=== PATIENT | female | born 1980 | race Hispanic/Latino ===

== ENCOUNTER 2017-10-25 12:22 | Inpatient (IN) | payer MEDICAID ==
--- NOTE | 2017-10-25 12:53 | History and Physical Report ---
History of Present Illness Chief complaint: I dont feel good History of present illness: 37 YO Female with HCV, Opiate Dependence admitted to Medical Stabilization Unit for stabilization treatment for Opiate withdrawl. Pt states that she has not used opiates for the past 1-2 days. Pt states that she has experienced abdominal cramping, nausea, multiple episodes of vomiting, and diarrhea, generalized muscle aches, pain all over her body, shaking, inability to concentrate, and feeling anxious. Pt seen and evaluated upon arrival and found to have Opiate Withdrawl and treated with IVF resuscitation and supportive care. Pt states that a needle broke and has remained in her right arm for the past several days. Past History Past Medical History: hepatitis Past Surgical History: cholecystectomy, Social history: single, IV drug use Family history: no significant family history (reviewed) Medications and Allergies Allergies Allergy/AdvReac Type Severity Reaction Status Date / Time No Known Allergies Allergy Unverified 10/25/17 12:30 Home Medications Medication Instructions Recorded Confirmed Last Taken Type No Known Home Medications [No 10/25/17 10/25/17 Unknown History Reported Home Medications] Active Meds: Active Medications Chlordiazepoxide HCl (Librium) 50 mg PO Q6HR ÁNGELA Stop: 10/26/17 12:01 Sodium Chloride (Nacl 0.9% 1000 Ml) 1,000 mls @ 75 mls/hr IV DIRECT ÁNGELA Review of Systems Constitutional: sweats, weakness, poor appetite, no weight loss, no weight gain , no fever, no chills Ears, nose, mouth and throat: no ear pain, no ear discharge, no tinnitis, no decreased hearing, no nose pain, no nasal congestion, no nasal discharge Breasts: no change in shape, no swelling, no mass Cardiovascular: no chest pain, no orthopnea, no palpitations, no rapid/ irregular heart beat, no edema, no syncope Respiratory: no cough, no cough with sputum, no excessive sputum, no hemoptysis , no shortness of breath Gastrointestinal: nausea, vomiting, diarrhea, no BRBPR, no melena, no hematochezia Genitourinary Female: no pelvic pain, no flank pain, no menorrhagia, no dysuria , no urinary frequency, no urgency Rectal: no pain, no bleeding Musculoskeletal: no neck stiffness, no neck pain, no shooting arm pain, no arm numbness/tingling, no low back pain, no shooting leg pain, no leg numbness/ tingling Integumentary: no rash, no pruritis, no redness, no sores, no wounds Neurological: tremors, no head injury, no transient paralysis, no paralysis, no weakness, no parathesias, no numbness, no tingling, no seizures Psychiatric: anxiety, sleep disturbances, depression, no memory loss, no change in sleep habits Endocrine: no cold intolerance, no heat intolerance, no polyphagia Hematologic/Lymphatic: no easy bruising, no easy bleeding, no lymphadenopathy, no lymphedema Allergic/Immunologic: no urticaria, no allergic rhinitis, no wheezing, no persistent infections, no anaphylaxis, no angioedema Exam - Constitutional General appearance: Present: severe distress - EENT Eyes: Present: mydriasis ENT: hearing intact, clear oral mucosa - Neck Neck: Present: supple, normal ROM - Respiratory Respiratory effort: normal Respiratory: bilateral: CTA - Cardiovascular Heart Sounds: Present: S1 & S2. Absent: rub, click - Extremities Extremities: pulses symmetrical, No edema Peripheral Pulses: within normal limits - Abdominal General gastrointestinal: Present: soft, non-tender, non-distended, normal bowel sounds Female genitourinary: Present: normal - Rectal Rectal Exam: normal exam-external/orifice - Integumentary Integumentary: Present: clear, dry, decreased turgor - Musculoskeletal Musculoskeletal: gait normal, strength equal bilaterally - Psychiatric Psychiatric: agitated - Neurologic Neurologic: CNII-XII intact, moves all extremities Results - Labs CBC & Chem 7: 10/25/17 14:48 10/25/17 14:48 Assessment and Plan - Patient Problems (1) Acute opioid withdrawal Current Visit: Yes Status: Acute Plan to address problem: IVF resuscitation therapy, neuro checks, Librium taper, antiemetic therapy, diet as tolerated, CBC, CMP (2) Foreign body (FB) in soft tissue Current Visit: Yes Status: Acute Plan to address problem: X ray RUE to evaluate for broken syringe, (3) DVT prophylaxis Current Visit: Yes Status: Acute Plan to address problem: scd to BLE while in bed.
[2017-10-25] MEDS ORDERED: NACL 0.9% 1000 ML 1,000 ML IV SCH (13:00)
[2017-10-25] MEDS ORDERED: LIBRIUM PO SCH ×2 (14:16→18:00)
[2017-10-25] MEDS: LIBRIUM PO SCH ×2 (14:26→20:45)
--- NOTE | 2017-10-25 15:08 | XRay Report ---
Right hand 2 views: History: Right hand pain. Findings: No fracture periosteal reaction or lytic lesion. No soft tissue calcification. Impression: Essentially negative right hand.
[2017-10-25 15:26] LABS: Alanine Aminotransferase 32 units/L (7-56); Albumin 3.9 g/dL (3.9-5); BUN/Creatinine Ratio 12; Blood Urea Nitrogen 6 mg/dL (7-17); Calcium 9.1 mg/dL (8.4-10.2); Hemolysis Index 9
[2017-10-25 15:37] LABS: Hematocrit 39.1 % (30.3-42.9); Hemoglobin 13.3 gm/dl (10.1-14.3); Mean Corpuscular HGB Conc 34 % (30-34); Mean Corpuscular Hemoglobin 27 pg (28-32); Mean Corpuscular Volume 78 fl (79-97); Platelet Count 232 K/mm3 (140-440); Red Cell Distribution Width 15.8 % (13.2-15.2)
[2017-10-25 15:51] LABS: Basophils # (Auto) 0.1 K/mm3 (0.0-0.1); Basophils % (Auto) 1.2 % (0.0-1.8); Eosinophils # (Auto) 0.2 K/mm3 (0.0-0.4); Eosinophils % (Auto) 3.4 % (0.0-4.3); Lymphocytes # (Auto) 3.4 K/mm3 (1.2-5.4); Lymphocytes % (Auto) 45.6 % (13.4-35.0); Monocytes # (Auto) 0.6 K/mm3 (0.0-0.8); Monocytes % (Auto) 7.9 % (0.0-7.3)
--- NOTE | 2017-10-25 17:15 | XRay Report ---
FINAL REPORT EXAM: XR FOREARM RT HISTORY: foreign body in AC Fossa: broken syringe tip TECHNIQUE: 2 views of the right forearm PRIORS: None. FINDINGS: Wrist degenerative change. No acute fracture or dislocation. No radiographic evidence of radiopaque foreign body. IV in place in the hand dorsum. IMPRESSION: No acute skeletal pathology No visible radiopaque foreign body
[2017-10-26] MEDS: LIBRIUM PO SCH ×2 (00:37→08:24)
[2017-10-26 10:35] VITALS: BP 150/81
[2017-10-26] MEDS ORDERED: LIBRIUM PO ONE (14:00)
--- NOTE | 2017-10-26 18:16 | Discharge Summary ---
Providers - Providers Date of Admission: 10/25/17 12:48 Attending physician: ROXANE GOMEZ MD Primary care physician: LILY DSOUZA MD Hospitalization Reason for admission: opiate withdrawal Hospital course: Patient was admitted to the medical stabilization unit for opiate withdrawal management. Patient was started treatment according to the protocol. Patient doesn't smoker and declined nicotine patch, gum and any other alternatives. Patient wants to smoke outside and left AMA. Patient left before I examined him. Disposition: [id number] LEFT AGAINST MED ADVICE Time spent for discharge: 15 minutes - Discharge Diagnoses (1) Acute opioid withdrawal Status: Acute Core Measure Documentation - Palliative Care Palliative Care/ Comfort Measures: Not Applicable - Core Measures Any of the following diagnoses?: none Exam - Physical Exam Narrative exam: Patient left AMA before I examined him. - Constitutional Vitals: Temp Pulse Resp BP Pulse Ox 98.0 F 79 18 150/81 97 10/26/17 09:52 10/26/17 09:52 10/26/17 10:00 10/26/17 09:52 10/26/17 10:00 Plan Follow up with: LLIY DSOUZA MD [Primary Care Provider] - 7 Days
== END 2017-10-26 10:45 | disposition left against medical advice (07) | DRG 894 ==
LOC: 3A 12:22 → UNDOADMIN 12:22 → MSU 12:48
PROVIDERS: ADMIT Internal Medicine; ATTEND Internal Medicine
DX: F11.23 Opioid dependence with withdrawal (principal); Z53.21 Procedure and treatment not carried out due to patient leaving prior to being seen by health care provider; Z90.49 Acquired absence of other specified parts of digestive tract
CPT/HCPCS: 36415; 80053; 85025; J7030